=== PATIENT | female | born 1980 | race Caucasian/White ===

== ENCOUNTER → 2021-04-01 | Outpatient (CLI) | payer BC ==
[2021-04-04 05:10] LABS: CHLAMYDIA TRACHOMATIS, NAA Negative (Negative)
== END | disposition home or self-care (01) ==
LOC: LAB SHORT 17:00
PROVIDERS: Obstetrics & Gynecology
DX: Z34.01 Encounter for supervision of normal first pregnancy, first trimester (principal)
CPT/HCPCS: 87086; 87491; 87591

== ENCOUNTER → 2021-10-20 | Outpatient (CLI) | payer BC | END | disposition home or self-care (01) | LOC: LAB 16:29 → LAB SHORT 16:29 | DX: Z34.83 Encounter for supervision of other normal pregnancy, third trimester (principal); Z3A.36 36 weeks gestation of pregnancy | CPT/HCPCS: 87081; 87150 ==

== ENCOUNTER 2021-11-05 15:10 | Inpatient (IN) | payer BC ==
[~2021-11-05] VITALS: Ht 165.1 cm; Wt 105.0 kg
[2021-11-05 18:42] LABS: BASOPHILS ABSOLUTE AUTO 0.02 K/mm3 (0.00-0.23); BASOPHILS PERCENT AUTO 0 % (0-2); EOSINOPHILS ABSOLUTE AUTO 0.07 K/mm3 (0.00-0.68); EOSINOPHILS PERCENT AUTO 1 % (0-6); Hematocrit 34.6 % (33.0-51.0); Hemoglobin 11.5 g/dL (11.5-16.0); IMMATURE GRAN ABSOLUTE AUTO 0.03 K/mm3 (0.00-0.10); IMMATURE GRAN PERCENT AUTO 0 % (0-1); LYMPHOCYTES ABSOLUTE AUTO 1.58 K/mm3 (0.84-5.20); LYMPHOCYTES PERCENT AUTO 16 % (21-46); MONOCYTES ABSOLUTE AUTO 0.72 K/mm3 (0.16-1.47); MONOCYTES PERCENT AUTO 8 % (4-13); Mean Corpuscular HGB 29.6 pg (26.0-34.0); Mean Corpuscular HGB Conc 33.2 g/dL (31.5-36.5); Mean Corpuscular Volume 89 fL (80-100); Mean Platelet Volume 10.3 fL (9.1-12.4); NEUTROPHILS ABSOLUTE AUTO 7.19 K/mm3 (1.96-9.15); NEUTROPHILS PERCENT AUTO 75 % (41-73); Platelet Count 235 K/mm3 (150-400); RDW Standard Deviation 42.4 fL (35.1-46.3); Red Blood Cell Count 3.88 M/mm3 (3.80-5.20); White Blood Cell Count 9.61 K/mm3 (4.00-11.30)
[2021-11-05] MEDS ORDERED: PRENATAL TABLE1 EAC2 PO (18:44)
--- NOTE | 2021-11-06 22:40 | NUR ---
PT REPORTED 6/10 PAIN AT THE BEGINNING OF THIS SHIFT. SHE IS PRESCRIBED TYLENOL 325 MG AND TORADOL. SHE WAS GIVEN TYLENOL AND REPORTED OVER AN HOUR LATER THAT HER PAIN WAS CLOSER TO 9/10. PAIN IS IN THE LOWER PELVIS, WORSE ON RIGHT SIDE, THOMAS AREA, AND LOWER BACK. SHE REPORTS WORSENING OF THE PAIN WITH BREAST FEEDING. WE DISCUSSED WORSENING OF PAIN DURING BF WITH EACH CHILD. SHE WAS GIVEN A HEATING PAD. SHE ALSO CHANGED POSITIONS AND WALKED AROUND THE ROOM WITH NO RELIEF. SPOKE WITH DR. 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 SHE ORDERED OXYCODONE Q4H PRN, TYLENOL 650 MG Q4H PRN AND HYDROXYZINE 25 MG Q4H PRN NO PAIN RELIEF WITH OTHER MEDICATIONS. ORDERS ENTERED.
[2021-11-07 06:22] LABS: BASOPHILS ABSOLUTE AUTO 0.03 K/mm3 (0.00-0.23); BASOPHILS PERCENT AUTO 0 % (0-2); EOSINOPHILS ABSOLUTE AUTO 0.11 K/mm3 (0.00-0.68); EOSINOPHILS PERCENT AUTO 1 % (0-6); Hematocrit 29.7 % (33.0-51.0); Hemoglobin 9.7 g/dL (11.5-16.0); IMMATURE GRAN ABSOLUTE AUTO 0.06 K/mm3 (0.00-0.10); IMMATURE GRAN PERCENT AUTO 0 % (0-1); LYMPHOCYTES ABSOLUTE AUTO 2.09 K/mm3 (0.84-5.20); LYMPHOCYTES PERCENT AUTO 14 % (21-46); MONOCYTES ABSOLUTE AUTO 1.09 K/mm3 (0.16-1.47); MONOCYTES PERCENT AUTO 7 % (4-13); Mean Corpuscular HGB 29.8 pg (26.0-34.0); Mean Corpuscular HGB Conc 32.7 g/dL (31.5-36.5); Mean Corpuscular Volume 91 fL (80-100); Mean Platelet Volume 10.5 fL (9.1-12.4); NEUTROPHILS ABSOLUTE AUTO 11.32 K/mm3 (1.96-9.15); NEUTROPHILS PERCENT AUTO 77 % (41-73); Platelet Count 196 K/mm3 (150-400); RDW Coefficient Variation 13.2 % (11.7-14.2); RDW Standard Deviation 44.1 fL (35.1-46.3); Red Blood Cell Count 3.26 M/mm3 (3.80-5.20)
--- NOTE | 2021-11-07 11:17 | NUR ---
Printed d/c instructions and teaching reviewed w/pt and . Questions answered to her satisfaction. Will prepare for d/c home pending MD discharge order.
--- NOTE | 2021-11-07 14:44 | NUR ---
No acute changes t/o shift. ID bands matched w/nb. Pt denies additional questions/concerns. pt d/c'd home ambulatory to care of .
== END 2021-11-07 14:40 | disposition home or self-care (01) | DRG 807 ==
LOC: OBS 15:10 → BC 15:15 → OBS 15:23 → BC 15:24
PROVIDERS: ADMIT Obstetrics & Gynecology
PROC: 10E0XZZ Delivery of Products of Conception, External Approach (ICD-10-PCS; principal; 2021-11-06)
DX: O42.00 Premature rupture of membranes, onset of labor within 24 hours of rupture, unspecified weeks of gestation (principal); Z37.0 Single live birth; Z3A.38 38 weeks gestation of pregnancy; Z79.899 Other long term (current) drug therapy; Z91.09 Other allergy status, other than to drugs and biological substances; Z87.891 Personal history of nicotine dependence
CPT/HCPCS: 36415; 51702; 59025; 85025; 86850; 86900; 86901; 87210; A9270; J0690; J1200; J1885; J2210; J2590; J3010; J7120